=== PATIENT | female | born 2000 | race Caucasian/White ===

== ENCOUNTER 2018-08-16 00:33 | Emergency (ER) | payer OTHER ==
--- NOTE | 2018-08-16 01:05 | EDPHY ---
H & P Stated Complaint: panic attack Time Seen by Provider: 08/16/18 01:05 HPI/ROS: HPI CHIEF COMPLAINT: Anxiety/panic attack HISTORY OF PRESENT ILLNESS: This is a very pleasant 17-year-old female, presents emergency room stating that she is having a panic attack. She typically takes an antidepressant every day, and has been doing so. She also has Xanax 0.25 mg for rescue. She took the Xanax however did not help. This caused her to get more anxious so she decided come here to the emergency room. She denies chest pain or shortness of breath, denies wanting to harm herself or anybody else. Past Medical History: Anxiety, history panic attacks Past Surgical History: No recent surgery Social History: Occasional alcohol use. Student. Family History: Noncontributory ROS REVIEW OF SYSTEMS: 10 Systems were reviewed and negative with the exception of the elements mentioned in the history of present illness. Exam Constitutional anxious, triage nursing summary reviewed, vital signs reviewed, awake/alert. Eyes normal conjunctivae and sclera, EOMI, PERRLA. HENT normal inspection, atraumatic, moist mucus membranes, no epistaxis, neck supple/ no meningismus, no raccoon eyes. Respiratory clear to auscultation bilaterally, normal breath sounds, no respiratory distress, no wheezing. Cardiovascular rate normal, regular rhythm, no murmur, no edema, distal pulses normal. Gastrointestinal soft, non-tender, no rebound, no guarding, normal bowel sounds, no distension, no pulsatile mass. Genitourinary no CVA tenderness. Musculoskeletal no midline vertebral tenderness, full range of motion, no calf swelling, no tenderness of extremities, no meningismus, good pulses, neurovascularly intact. Skin pink, warm, & dry, no rash, skin atraumatic. Neurologic awake, alert and oriented x 3, AAOx3, moves all 4 extremities equally, motor intact, sensory intact, CN II-XII intact, normal cerebellar, normal vision, normal speech. Psychiatric anxious Heme/Lymph/Immune no lymphadenopathy. Differential Diagnosis: Includes but is not limited to in a particular order acute anxiety attack, panic attack. Medical Decision Making: Here in the emergency room this patient appears very well nontoxic however slightly anxious. Vital signs are stable. Plan will be for 1 mg p.o. Ativan and re-evaluate. Re-evaluation: 0254: Patient here in emergency room feels much better after 1 mg p.o. Ativan. The patient is requesting discharge she feels sleepy. She would like to go home and sleep. Do recommend she follows up with primary care doctor. Additionally return precautions discussed. Return emergency room if worsening symptoms. She feels comfortable going home. She received 1 mg of Ativan. And is resting comfortably anxiety well controlled. Source: Patient - Personal History LMP (Females 10-55): 1-7 Days Ago Current Tetanus/Diphtheria Vaccine: Yes Current Tetanus Diphtheria and Acellular Pertussis (TDAP): Yes - Medical/Surgical History Hx Asthma: No Hx Chronic Respiratory Disease: No Hx Diabetes: No Hx Cardiac Disease: No Hx Renal Disease: No Hx Cirrhosis: No Hx Alcoholism: No Hx HIV/AIDS: No Hx Splenectomy or Spleen Trauma: No Other PMH: wisdom teeth, anxiety - Social History Smoking Status: Never smoked Constitutional: Initial Vital Signs Temperature (C) 36.8 C 08/16/18 00:35 Heart Rate 86 08/16/18 00:35 Respiratory Rate 16 08/16/18 00:35 Blood Pressure 126/68 H 08/16/18 00:35 O2 Sat (%) 94 08/16/18 00:35 O2 Delivery Mode Room Air Allergies/Adverse Reactions: No Known Allergies Allergy (Unverified 08/16/18 00:37) Home Medications: Medication Instructions Recorded Lo Alisa Fe 1-10 Tablet 08/16/18 Prozac 20 MG (*) 08/16/18 Medical Decision Making - Data Points Medications Given: Discontinued Medications Lorazepam (Ativan) 1 mg PO ONCE ONE Stop: 08/16/18 01:09 Last Admin: 08/16/18 01:11 Dose: 1 mg Departure - Departure Disposition: Home, Routine, Self-Care Clinical Impression: Panic attack Condition: Good Instructions: Anxiety (ED), Panic Attack (ED) Referrals: NONE *PRIMARY CARE P,. [Primary Care Provider] - As per Instructions [facility],. [Clinic] - As per Instructions
[2018-08-16] MEDS ORDERED: LORazepam 1 MG TAB PO ONE (01:08)
[2018-08-16 03:04] VITALS: BP 105/59
== END 2018-08-16 03:04 | disposition home or self-care (01) ==
DX: F41.0 Panic disorder [episodic paroxysmal anxiety] (principal)